=== PATIENT | female | born 1980 | race Caucasian/White ===

== ENCOUNTER 2017-08-09 11:26 | Emergency (ER) | payer MEDICAID, OTHER ==
[~2017-08-09] VITALS: Ht 162.6 cm; Wt 68.0 kg
--- NOTE | 2017-08-09 11:40 | NUR ---
36 years old female walk-in to er c/o lower back pain radiate to lower abd x1 week.
--- NOTE | 2017-08-09 12:01 | NUR ---
urine collected/sent to er.
[2017-08-09 12:07] LABS: *BILIRUBIN,URIN NEGATIVE (NEGATIVE); *BLOOD, URINE NEGATIVE (NEGATIVE); *CLARITY,URINE CLEAR (CLEAR); *COLOR,URINE YELLOW (YELLOW); *KETONES,URINE NEGATIVE (NEGATIVE); *PROTEIN,URINE NEGATIVE (NEGATIVE); *UROBILINOGEN,URINE 0.2 E.U./dl (NORMAL); LEUKOCYTE ESTERASE ,URINE NEGATIVE (NEGATIVE); NITRITE, URINE NEGATIVE (NEGATIVE); UGLUCOSE NEGATIVE (NEGATIVE)
[2017-08-09 12:09] LABS: *URINE HCG, QUAL NEGATIVE (NEGATIVE)
[2017-08-09 12:13] LABS: BACTERIA,URINE FEW /HPF (NONE SEEN); RBC,URINE 0-3 /HPF (0-3); SQUAMOUS EPITHELIAL CELL,UR MODERATE /HPF (NONE SEEN); WBC,URINE 0-3 /HPF (0-3)
[2017-08-09] MEDS ORDERED: KETOROLAC TROMETHAMINE 15 MG INJ IV ONE (12:30)
[2017-08-09] MEDS ORDERED: IV NORMAL SALINE 1000 ML BAG IV ONE (12:30)
--- NOTE | 2017-08-09 12:45 | NUR ---
lab drawn meds given no acute distress result in progress will continue to monitor.
[2017-08-09 12:48] LABS: BASOPHILS # (AUTO) 0.1 K/uL (0.0-8.0); BASOPHILS % (AUTO) 0.9 % (0.0-2.0); EOSINOPHILS # (AUTO) 0.1 K/uL (0.0-0.7); EOSINOPHILS % (AUTO) 1.6 % (0.0-7.0); HEMATOCRIT 38.9 % (31.2-41.9); HEMOGLOBIN 13.4 g/dL (10.9-14.3); LYMPHOCYTES # (AUTO) 2.6 K/uL (20.0-40.0); LYMPHOCYTES % (AUTO) 40.1 % (20.5-51.5); MEAN CORPUSCULAR HEMOGLOBIN 30.9 uug (24.7-32.8); MEAN CORPUSCULAR HGB CONC 34 g/dL (32.3-35.6); MEAN CORPUSCULAR VOLUME 89.9 fL (75.5-95.3); MONOCYTES # (AUTO) 0.5 K/uL (2.0-10.0); MONOCYTES % (AUTO) 7.9 % (0.0-11.0); NEUTROPHILS # (AUTO) 3.2 K/uL (1.8-8.9); NEUTROPHILS % (AUTO) 49.5 % (38.5-71.5); PLATELET COUNT (AUTO) 334 K/uL (179-408); RED BLOOD CELL COUNT(AUTO) 4.33 MIL/uL (3.63-4.92); WHITE BLOOD COUNT (AUTO) 6.5 K/uL (3.8-11.8)
[2017-08-09] MEDS ORDERED: KETOROLAC TROMETHAMINE 15 MG INJ ONE (12:52)
[2017-08-09 13:06] LABS: BILIRUBIN,DIRECT 0.1 mg/dL (0.0-0.2); BILIRUBIN,TOTAL 0.4 mg/dL (0.2-1.0); CREATININE 0.8 mg/dL (0.6-1.3); POTASSIUM 3.7 mmol/L (3.5-5.1); TOTAL PROTEIN, SERUM 6.8 g/dL (6.4-8.2)
[2017-08-09] MEDS ORDERED: IOHEXOL 300MG/ML 100 ML INFUS..BTL ONE (13:17)
[2017-08-09] MEDS ORDERED: IV NORMAL SALINE 250 ML IV ONE (13:17)
[2017-08-09] MEDS ORDERED: HEPARIN SODIUM,PORCINE/PF 100 UNIT/ML, 5ML SYR ONE (13:17)
--- NOTE | 2017-08-09 13:35 | NUR ---
pt returns from ct.
[2017-08-09 14:40] VITALS: BP 130/70
--- NOTE | 2017-08-09 14:59 | NUR ---
pt left er via self alert, oriented x 4 ambulatory with steady gait, after care reviewed understood prescription given.
== END 2017-08-09 15:00 | disposition home or self-care (01) ==
LOC: ER 11:26
DX: M54.9 Dorsalgia, unspecified (principal); R10.12 Left upper quadrant pain; Z88.0 Allergy status to penicillin
CPT/HCPCS: 36415; 71010; 74177; 80048; 80076; 81001; 83690; 84484; 84703; 85025; 85730; 96361; 96374; 99285; A4663; J1642; J1885; J7030; J7050; Q9967; 70030-TC

== ENCOUNTER 2017-08-27 09:39 | Emergency (ER) | payer MEDICAID ==
[~2017-08-27] VITALS: Ht 160 cm; Wt 65.8 kg
--- NOTE | 2017-08-27 09:57 | NUR ---
DR DICKERSON AT THE BEDSIDE FOR MSE.
[2017-08-27 10:07] VITALS: BP 117/81
--- NOTE | 2017-08-27 10:08 | NUR ---
Patient discharged to home in stable conditon. Written and verbal after care instructions given. Patient verbalizes understanding of instructions.
== END 2017-08-27 10:08 | disposition home or self-care (01) ==
LOC: ER 09:39
DX: J11.1 Influenza due to unidentified influenza virus with other respiratory manifestations (principal); Z88.0 Allergy status to penicillin
CPT/HCPCS: 99283; A4663

== ENCOUNTER 2017-11-08 16:15 | Emergency (ER) | payer MEDICAID ==
[~2017-11-08] VITALS: Ht 160 cm; Wt 65.8 kg
[2017-11-08] MEDS ORDERED: IBUPROFEN 600 MG TABLET ONE (16:44)
[2017-11-08] MEDS ORDERED: IBUPROFEN 600 MG TABLET PO ONE (16:45)
--- NOTE | 2017-11-08 17:30 | NUR ---
Patient discharged to home in stable conditon. Written and verbal after care instructions given to patient. Patient verbalizes understanding of instructions. CD copy of the x-ray was also provided. per patient's request.
== END 2017-11-08 17:36 | disposition home or self-care (01) ==
LOC: ER 16:16
DX: S61.012A Laceration without foreign body of left thumb without damage to nail, initial encounter (principal); W26.8XXA Contact with other sharp object(s), not elsewhere classified, initial encounter; Y93.89 Activity, other specified; Y92.89 Other specified places as the place of occurrence of the external cause; Y99.8 Other external cause status
CPT/HCPCS: 73140; A4217; A4663

== ENCOUNTER 2017-12-04 02:00 | Emergency (ER) | payer MEDICAID ==
[~2017-12-04] VITALS: Ht 160 cm; Wt 63.5 kg
--- NOTE | 2017-12-04 02:22 | NUR ---
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 PT WEARS CONTACTS, AND HAS REMOVED THEM AND PLACED THEM AT BEDSIDE IN NS. L EYE IS RED AND SWOLLEN.
--- NOTE | 2017-12-04 02:26 | NUR ---
DR MYNOR GRAY MD AT BEDSIDE FOR MSE.
[2017-12-04] MEDS ORDERED: TETRACAINE HCL 0.5% OPHT DROP 2 ML BOTTLE ONE (02:36)
[2017-12-04] MEDS ORDERED: FLUORESCEIN SODIUM 1 MG STRIP OP ONE (02:45)
[2017-12-04] MEDS ORDERED: TETRACAINE HCL 0.5% OPHT DROP 2 ML BOTTLE OP ONE (02:45)
--- NOTE | 2017-12-04 03:00 | NUR ---
OUT OF FLUORESCEIN IN [place]. MESSAGED PLACED TO [facility]. [employer] TEAM MEMBER NOTIFIED.
[2017-12-04] MEDS ORDERED: ACETAMINOPHEN ES 500 MG TABLET PO ONE (03:15)
[2017-12-04] MEDS ORDERED: IBUPROFEN 800 MG TABLET PO ONE (03:15)
[2017-12-04] MEDS ORDERED: KETOROLAC TROMETHAMINE 30 MG INJ IM ONE (03:15)
[2017-12-04] MEDS ORDERED: KETOROLAC TROMETHAMINE 30 MG INJ ONE (03:18)
[2017-12-04] MEDS ORDERED: ACETAMINOPHEN ES 500 MG TABLET ONE (03:18)
--- NOTE | 2017-12-04 03:48 | NUR ---
FLUORESCEIN PICKED UP FROM [facility].
--- NOTE | 2017-12-04 04:42 | NUR ---
PT STATES SHE DOES NOT WANT TO RECIEVE EYE IRRIGATION ORDERED BY MD. STATES SHE WOULD "RAHTER JUST GO TO [facility] AND GET SALINE [HER]SELF"
--- NOTE | 2017-12-04 04:50 | NUR ---
Patient does not wish to proceed with medical care recommended by Dr. LOWE. Patient given information related to possible complications, up to and including , which could occur as a result of leaving the hospital at this time. Patient verbalizes understanding of risks involved due to leaving against medical advice. Patient has signed AMA form.
[2017-12-04 06:29] VITALS: BP 118/84
== END 2017-12-04 04:50 | disposition left against medical advice (07) ==
LOC: ER 02:01
DX: H57.12 Ocular pain, left eye (principal); F17.210 Nicotine dependence, cigarettes, uncomplicated; Z88.0 Allergy status to penicillin; Z53.29 Procedure and treatment not carried out because of patient's decision for other reasons
CPT/HCPCS: A4663; A9150; J1885; J7040